=== PATIENT | male | born 1995 | race Caucasian/White ===

== ENCOUNTER 2016-08-22 16:36 | Emergency (ER) | payer OTHER ==
--- NOTE | 2016-08-22 17:07 | UC ---
Lower Extremity/Ankle HPI - HPI Summary HPI Summary: complaint of left lower leg pain that started today fell fell through some steps and slammed his lower leg into the next lower step able to ambulate after injury intermittent shooting pain in the front of his leg nothing lessens the pain hasn't taken any medication - History of Current Complaint Chief Complaint: UCLowerExtremity Stated Complaint: LEFT LEG INJURY Time Seen by Provider: 08/22/16 17:01 Hx Obtained From: Patient - Allergies/Home Medications Allergies/Adverse Reactions: Allergies Allergy/AdvReac Type Severity Reaction Status Date / Time No Known Allergies Allergy Verified 08/22/16 16:44 Home Medications: Home Medications NK [No Home Medications Reported] 08/22/16 [History Confirmed 08/22/16] PMH/Surg Hx/FS Hx/Imm Hx Previously Healthy: Yes - Surgical History Surgical History: None - Family History Known Family History: Negative: Cardiac Disease, Hypertension, Diabetes - Social History Occupation: Employed Full-time Alcohol Use: None Substance Use Type: None Smoking Status (MU): Heavy Every Day Tobacco Smoker Amount Used/How Often: 1 pack per day Review of Systems Constitutional: Negative Skin: Negative Eyes: Negative ENT: Negative Respiratory: Negative Cardiovascular: Negative Gastrointestinal: Negative Genitourinary: Negative Motor: Negative Neurovascular: Negative Musculoskeletal: Other: - left leg apin Neurological: Negative Psychological: Negative All Other Systems Reviewed And Are Negative: Yes Physical Exam Triage Information Reviewed: Yes Appearance: No Pain Distress, Well-Nourished, Obese Vital Signs: Initial Vital Signs Temp 99.5 F 08/22/16 16:44 Pulse 86 08/22/16 16:44 Resp 16 08/22/16 16:44 BP 132/75 08/22/16 16:44 Pulse Ox 98 08/22/16 16:44 Vital Signs Reviewed: Yes Eyes: Positive: Conjunctiva Clear ENT: Positive: Pharynx normal, TMs normal Neck: Positive: No Lymphadenopathy Respiratory: Positive: Lungs clear, Normal breath sounds, No respiratory distress, No accessory muscle use Cardiovascular: Positive: RRR, No Murmur, Pulses Normal Abdomen Description: Positive: Nontender, Soft Bowel Sounds: Positive: Present Musculoskeletal: Positive: Other: - LLE- knee non tendern, ankle non tender, lower leg tenderness and edemaecchymosis mid tibia area approx 6x4 cm no calf tenderness Neurological: Positive: Alert Psychological Exam: Normal Skin: Positive: Other - abrasion left lower leg Lower Extremity Course/Dx - Course Course Of Treatment: exam completed. x-ray neagitve for fracture. will treat for contusion, NSAIDS, RICE - Differential Dx/Diagnosis Differential Diagnosis/HQI/PQRI: Contusion, Fracture (Closed) Provider Diagnoses: left lower leg contusion Discharge - Discharge Plan Condition: Stable Disposition: HOME Patient Education Materials: Contusion in Adults (ED), RICE Therapy (ED) Forms: *Work Release Referrals: Ortiz Thompson MD [Primary Care Provider] - Additional Instructions: Increase fluids and rest Take acetaminophen or ibuprofen for fever or pain Please review your discharge instructions. If your symptoms do not improve please call your primary care provider or return to urgent care.
[2016-08-22] MEDS ORDERED: Ibuprofen TAB* 400 MG PO ONE (17:08)
--- NOTE | 2016-08-22 18:17 | RAD ---
Indication: Pain at the mid anterior left lower leg after "fell through a step today" Comparison: None. Technique: AP and lateral views left lower leg. Report: The visualized bones are adequately corticated and well aligned. There is no acute fracture, dislocation or other focal abnormality. The soft tissues appear grossly normal. IMPRESSION: Normal left lower leg radiograph. If the patient's symptoms persist, follow-up imaging is recommended.
== END 2016-08-22 17:58 | disposition home or self-care (01) ==
LOC: UCCORT 16:36
DX: Z72.0 Tobacco use (principal); S80.12XA Contusion of left lower leg, initial encounter; W17.89XA Other fall from one level to another, initial encounter; Y93.9 Activity, unspecified; Y92.9 Unspecified place or not applicable; Y99.9 Unspecified external cause status
CPT/HCPCS: 99212; A9270-GY; G0463

== ENCOUNTER 2016-10-02 17:04 | Emergency (ER) | payer OTHER ==
[2016-10-02 17:15] VITALS: BP 129/65
--- NOTE | 2016-10-02 17:34 | UC ---
UC General HPI - HPI Summary HPI Summary: 1 month history of heartburn, with some relief with TUMS as advised in ER. Has had 4 Tums today without relief. Smokes, has 4 cups of coffee most days, eats large meals, weight is high. FH of reflux but neg for Chao's and esophageal cancer. No vomiting, no weight loss. No NSAID use. Has epigastric discomfort and pain high in the throat. Occasional awakening with reflux, no cough. - History of Current Complaint Chief Complaint: UCGI Stated Complaint: ACID REFLUX,HEARTBURN Time Seen by Provider: 10/02/16 17:23 Hx Obtained From: Patient Onset/Duration: Gradual Onset, Lasting Weeks - 4 Timing: Intermittent Episodes Lasting: - hours Onset Severity: Moderate Current Severity: Moderate - Allergy/Home Medications Allergies/Adverse Reactions: Allergies Allergy/AdvReac Type Severity Reaction Status Date / Time No Known Allergies Allergy Verified 10/02/16 17:09 Home Medications: Home Medications Calcium Carbonate CHEW TAB* [Tums*] 500 mg PO Q4H PRN 10/02/16 [History Confirmed 10/02/16] PMH/Surg Hx/FS Hx/Imm Hx - Additional Past Medical History Additional PMH: obesity, smoking dependent. - Surgical History Surgical History: None - Family History Known Family History: Positive: Diabetes - mother, Other - mother and brother with reflux disease. - Social History Occupation: Employed Full-time - [employer] Alcohol Use: None Substance Use Type: None Smoking Status (MU): Heavy Every Day Tobacco Smoker Type: Cigarettes Amount Used/How Often: 1/2-1 PPD Review of Systems Constitutional: Negative Skin: Negative Eyes: Negative ENT: Negative Respiratory: Other - smokes since age 18, stopped once and resumed. Cardiovascular: Negative Gastrointestinal: Other - reflux, stools are normal, weight is stable, no loss. Genitourinary: Negative Motor: Negative Neurovascular: Negative Musculoskeletal: Negative Neurological: Negative Psychological: Other - has a lot of work stress. All Other Systems Reviewed And Are Negative: Yes Physical Exam Triage Information Reviewed: Yes Appearance: Well-Appearing, Obese Vital Signs: Initial Vital Signs Temp 99.5 F 10/02/16 17:10 Pulse 88 10/02/16 17:10 Resp 16 10/02/16 17:10 BP 129/65 10/02/16 17:10 Pulse Ox 99 10/02/16 17:10 Vital Signs Reviewed: Yes Eye Exam: Normal ENT: Positive: Pharynx normal Neck: Positive: Supple, Nontender, No Lymphadenopathy Respiratory: Positive: Lungs clear, Normal breath sounds Cardiovascular: Positive: RRR, No Murmur Abdomen Description: Positive: No Organomegaly, Soft, Other: - mild epigastric pain without guarding.. Negative: Distended, Guarding Neurological Exam: Normal Course/Dx - Course Course Of Treatment: PPI x 1 month for reflux. Urged smokestopping, decrease in caffeine, smaller meals, weight loss. - Differential Dx - Multi-Symptom Provider Diagnoses: reflux esophagitis. Discharge - Discharge Plan Condition: Stable Disposition: HOME Prescriptions: Omeprazole 40 mg PO ONCE #30 cap Patient Education Materials: Gastroesophageal Reflux Disease (ED) Additional Instructions: Begin use of omeprazole 40mg once daily, ensuring that you take it 20 to 30 minutes before eating. You should ahve good results within 5 to 7 days, and you can use TUMS in the meantime in addition to the prilosec. Reflux can respond dramatically to lifestyle changes: smokestopping, caffeine restriction, weight loss, and eating smaller meals. Ensure that you follow up with your primary care doctor for smokestopping support.
== END 2016-10-02 17:48 | disposition home or self-care (01) ==
LOC: UCCORT 17:04
DX: K21.9 Gastro-esophageal reflux disease without esophagitis (principal); E66.9 Obesity, unspecified; F17.210 Nicotine dependence, cigarettes, uncomplicated
CPT/HCPCS: 99212; G0463

== ENCOUNTER 2017-09-05 14:40 | Emergency (ER) | payer OTHER ==
[2017-09-05 14:52] VITALS: BP 124/75
--- NOTE | 2017-09-05 14:52 | UC ---
Skin Complaint HPI - HPI Summary HPI Summary: 21 yo male presents with right great toe pain and swelling at nail/skin fold. He tells me that he works in [employer] and wears sandals/wet shoes daily. Yesterday noticed this toe beginning to get red, warm, and tender. Today is worse. Denies fever, chills, or drainage. - History of Current Complaint Chief Complaint: UCSkin Stated Complaint: RIGHT FOOT GREAT TOE COMPLAINT Hx Obtained From: Patient Onset/Duration: Gradual Onset Onset Severity: Mild Current Severity: Mild Pain Intensity: 4 Pain Scale Used: 0-10 Numeric - Allergy/Home Medications Allergies/Adverse Reactions: Allergies Allergy/AdvReac Type Severity Reaction Status Date / Time No Known Allergies Allergy Verified 09/05/17 14:50 Review of Systems Constitutional: Negative Skin: Other - Right great toe pain and redness Respiratory: Negative Cardiovascular: Negative Neurovascular: Negative Musculoskeletal: Negative Neurological: Negative Psychological: Negative All Other Systems Reviewed And Are Negative: Yes PMH/Surg Hx/FS Hx/Imm Hx - Additional Past Medical History Additional PMH: None Previously Healthy: Yes - Surgical History Surgical History: None - Family History Known Family History: Positive: Diabetes - mother, Other - mother and brother with reflux disease. Negative: Cardiac Disease, Hypertension - Social History Occupation: Employed Full-time Lives: With Family Alcohol Use: None Substance Use Type: None Smoking Status (MU): Heavy Every Day Tobacco Smoker Type: Cigarettes Amount Used/How Often: 1/2-1 PPD Physical Exam - Summary Physical Exam Summary: GENERAL: NAD. WDWN. No pain distress. SKIN: Right great toe: Nail/skin fold with moderate erythema, edema, and tenderness. No open area. No streaking, bleeding, or drainage. NECK: Supple. Nontender. No lymphadenopathy. CHEST: No accessory muscle use. Breathing comfortably and in no distress. CV: RRR. Without m/r/g. MSK: Right great toe FROM. NEURO: Alert. CN II-XII grossly intact. PSYCH: Age appropriate behavior. Triage Information Reviewed: Yes Vital Signs: Initial Vital Signs Temp 97.9 F 09/05/17 14:49 Pulse 90 09/05/17 14:49 Resp 16 09/05/17 14:49 BP 124/75 09/05/17 14:49 Pulse Ox 99 09/05/17 14:49 Course/Dx - Course Course Of Treatment: Paronychia right great toe - Diagnoses Provider Diagnoses: Paronychia right great toe Discharge - Sign-Out/Discharge Documenting (check all that apply): Discharge/Admit/Transfer - Discharge Plan Condition: Stable Disposition: HOME Prescriptions: Cephalexin CAP* [Keflex CAP*] 500 mg PO BID #14 cap Patient Education Materials: Paronychia (ED) Referrals: GLADYS Bianchi [Primary Care Provider] - Additional Instructions: If you develop a fever, shortness of breath, chest pain, new or worsening symptoms - please call your PCP or go to the ED. - Billing Disposition and Condition Condition: STABLE Disposition: Home
== END 2017-09-05 15:00 | disposition home or self-care (01) ==
LOC: UCCORT 14:40
DX: L03.031 Cellulitis of right toe (principal); F17.210 Nicotine dependence, cigarettes, uncomplicated
CPT/HCPCS: 99212; G0463